=== PATIENT | male | born 1985 | race Caucasian/White ===

== ENCOUNTER 2018-10-12 09:39 | Inpatient (IN) ==
[2018-10-12] MEDS ORDERED: IMODIUM PO PRN ×2 (15:45)
[2018-10-12] MEDS ORDERED: ZOFRAN IM PRN (15:45)
[2018-10-12] MEDS ORDERED: TYLENOL PO PRN (15:45)
[2018-10-12] MEDS ORDERED: PHENOBARBITAL IV PRN (15:45)
[2018-10-12] MEDS ORDERED: SENOKOT PO PRN (15:45)
[2018-10-12] MEDS ORDERED: DULCOLAX PR PRN (15:45)
[2018-10-12] MEDS ORDERED: D5W 1,000 ML IV PRN (15:45)
[2018-10-12] MEDS ORDERED: ZOFRAN IV PRN (15:45)
[2018-10-12] MEDS ORDERED: MAALOX PLUS LIQUID PO PRN (15:45)
[2018-10-12] MEDS ORDERED: ZOFRAN ODT PO PRN (15:45)
[2018-10-12] MEDS ORDERED: MOTRIN PO PRN (15:45)
[2018-10-12] MEDS ORDERED: LIBRIUM PO ONE (16:28)
[2018-10-12] MEDS ORDERED: ATARAX PO PRN (16:29)
[2018-10-12 16:32] LABS: AMYLASE 43 U/L (20-200); LIPASE 13 U/L (13-60)
[2018-10-12] MEDS ORDERED: TUBERSOL ID ONE (17:00)
[2018-10-12] MEDS: NICODERM PATCH TD PRN (17:07)
[2018-10-12 17:29] LABS: URINE SOURCE CLEAN CATCH
[2018-10-12 17:55] LABS: UR AMPHETAMINES QUAL NONE DETECTED (NONE DETECT); UR BARBITUATES QUAL NONE DETECTED (NONE DETECT); UR BENZODIAZEPIN QUAL NONE DETECTED (NONE DETECT); UR CANNABINOIDS QUAL NONE DETECTED (NONE DETECT); UR COCAINE QUAL NONE DETECTED (NONE DETECT); UR METHADONE QUAL NONE DETECTED (NONE DETECT); UR METHAMPHETAMINE QUAL NONE DETECTED (NONE DETECT); UR OPIATES QUAL PRESUMPTIVE POSITIVE (NONE DETECT); UR OXYCODONE QUAL NONE DETECTED (NONE DETECT); UR PCP QUAL NONE DETECTED (NONE DETECT); UR PROPOXYPHENE QUAL NONE DETECTED (NONE DETECT); UR TCA QUAL NONE DETECTED (NONE DETECT)
[2018-10-12 17:56] LABS: BILIRUBIN URINE NEGATIVE (NEGATIVE); BLOOD URINE NEGATIVE (NEGATIVE); CLARITY VERY CLOUDY (CLEAR); COLOR YELLOW; GLUCOSE URINE NEGATIVE (NEGATIVE); KETONE URINE TRACE mg/dL (NEGATIVE); LEUKOCYTES URINE TRACE (NEGATIVE); NITRITE URINE NEGATIVE (NEGATIVE); PROTEIN URINE NEGATIVE (NEGATIVE); SP GRAVITY URINE 1.015; UROBILINOGEN URINE 8 mg/dL
[2018-10-12 18:05] LABS: URINE BACTERIA 1+ /HFP; URINE CAST NONE SEEN /LPF; URINE CRYSTAL NONE SEEN /HPF; URINE EPITHELIAL CELLS <10 /HPF (<10); URINE WBC <10 /HPF (<10); URINE YEAST NONE SEEN /HPF
[2018-10-12] MEDS ORDERED: SINEMET 25/100 PO PRN (21:11)
[2018-10-12] MEDS ORDERED: ROBAXIN PO PRN (21:11)
[2018-10-12] MEDS ORDERED: BENTYL PO PRN (21:11)
[2018-10-12] MEDS: SEROQUEL PO PRN (21:34)
[2018-10-12] MEDS: LIBRIUM PO SCH (21:34)
[2018-10-13] MEDS: LIBRIUM PO SCH (03:18)
[2018-10-13] MEDS: PROTONIX PO SCH (06:14)
[2018-10-13] MEDS: VITAMIN B-1 PO SCH (09:41)
[2018-10-13] MEDS: THERA M PLUS PO SCH (09:41)
[2018-10-13] MEDS: FOLIC ACID PO SCH (09:41)
[2018-10-13] MEDS: SUBUTEX SL SCH ×2 (09:42→21:14)
[2018-10-13] MEDS: NICODERM PATCH TD PRN (13:30)
[2018-10-13] MEDS: NICOTINE GUM BUCCAL PRN (13:31)
[2018-10-13] MEDS: SEROQUEL PO PRN (21:19)
[2018-10-13] MEDS: ATARAX PO PRN (21:19)
[2018-10-13] MEDS: DESYREL PO PRN (23:18)
--- NOTE | 2018-10-14 03:57 | PROGRESS NOTE ---
DATE: 10/13/2018 SUBJECTIVE: Patient notes still not feeling well, still having muscle aches, nausea. Denies any fevers or chills. Denies any GI or issues. PHYSICAL EXAMINATION: Vital Signs: Temperature 98 degrees, pulse 61, respiratory rate 18, BP 107/57. General: Patient is awake, alert, currently in no distress. Tolerating Subutex and Librium taper well. We will continue to follow. cc: Jelani Hendricks MD
[2018-10-14] MEDS: PROTONIX PO SCH (06:12)
[2018-10-14] MEDS: THERA M PLUS PO SCH (10:27)
[2018-10-14] MEDS: VITAMIN B-1 PO SCH (10:27)
[2018-10-14] MEDS: FOLIC ACID PO SCH (10:27)
[2018-10-14] MEDS: SUBUTEX SL SCH ×2 (10:27→20:43)
[2018-10-14] MEDS: NICOTINE GUM BUCCAL PRN ×2 (10:53→20:58)
[2018-10-14] MEDS ORDERED: SUBUTEX SL ONE (11:15)
[2018-10-14] MEDS: NICODERM PATCH TD PRN (13:26)
[2018-10-14] MEDS: ATARAX PO PRN (20:44)
[2018-10-14] MEDS: SEROQUEL PO PRN (20:44)
[2018-10-14] MEDS: DESYREL PO PRN (21:40)
--- NOTE | 2018-10-15 02:14 | PROGRESS NOTE ---
DATE: 10/14/2018 SUBJECTIVE: Patient notes that he is still having lots of muscle aches, cramping, abdominal pain. States that his Suboxone is making him feel better but has not felt back to normal. PHYSICAL EXAMINATION: Vital Signs: Temperature 98 degrees, pulse 61, respiratory 18, BP 107/57. General: Patient is awake, alert, currently in no respiratory distress. HEENT: Normocephalic. Neck: Supple. Cardiovascular: Regular rate. No murmurs. Chest: Clear and nonlabored. Abdomen: Soft, nondistended. Extremities: Moves all extremities. Neurologic: No focal changes. ASSESSMENT: 1. Nausea and vomiting. 2. Abdominal pain. 3. Myalgias. 4. Paresthesias. 5. Paroxysmal sweating. 6. Opiate abuse, withdrawal and stabilization. PLAN: We will continue patient in the hospital. We will increase his Suboxone to 4 mg twice a day. We will continue to follow. Further orders as needed. cc: Jelani Hendricks MD
[2018-10-15] MEDS: PROTONIX PO SCH (07:24)
[2018-10-15] MEDS: SUBUTEX SL SCH (08:11)
[2018-10-15] MEDS: FOLIC ACID PO SCH (08:12)
[2018-10-15] MEDS: THERA M PLUS PO SCH (08:12)
[2018-10-15] MEDS: VITAMIN B-1 PO SCH (08:12)
[2018-10-15 11:49] VITALS: BP 119/69
--- NOTE | 2018-10-15 23:01 | DISCHARGE SUMMARY ---
ADMISSION DATE: 10/12/2018 DISCHARGE DATE: 10/15/2018 DISCHARGE DIAGNOSIS: 1. Nausea, vomiting. 2. Abdominal pain. 3. Myalgias . 4. Paresthesias. 5. Paroxysmal sweating. 6. Opiate abuse withdrawal and stabilization. CONSULTATIONS: None. PROCEDURES: None. BRIEF HOSPITAL COURSE: Patient is a 32-year-old male who presented to [facility] program was treated in usual fashion, placed initially on Librium and then on Subutex. The patient had intended to wean off Subutex but unfortunately was unable to do so. As the doses were weaned down his withdrawal symptoms and his desire to use increased. The Subutex was increased to 4 mg which he tolerated very well twice daily. DISPOSITION: On discharge patient is awake, alert, very pleasant to talk with. He is in no current respiratory distress. He is overall feeling better. Notes that his withdrawal symptoms are much improved on the 4 mg twice a day. Discussed with patient the use of Suboxone. We will initially write for 4 generic Suboxone pills to be taken 1/2 twice daily until which time Medicaid can be applied for prior authorization then will switch to Suboxone strips. Discussed with patient the importance of using Naloxone versus straight Subutex. Greater than 30 minutes was spent. cc: Jelani Hendricks MD
== END 2018-10-15 12:14 | disposition home or self-care (01) | DRG 897 ==
LOC: P.MEDSURG 15:05
PROVIDERS: ADMIT Family Medicine; ATTEND Family Medicine
CPT/HCPCS: 80104; 80301; 80305; 80307; 80320; 81001; 82055; 82150; 83690; 86580; A9270; G0431; G0434; G0477; G0480; G6040; S4995